=== PATIENT | female | born 1980 | race Caucasian/White ===

== ENCOUNTER 2016-12-01 21:25 | Emergency (ER) | payer OTHER ==
[~2016-12-01] VITALS: Ht 154.9 cm; Wt 89.4 kg
[~2016-12-01 21:25] MED LIST: ABILIFY DISCMEL10 MG PO; ALDACTONE100 MG PO; AQUASOL-A,10000 UNIT PO; ATIVAN0.5 MG PO; BENTYL20 MG PO; BUMETANIDE0.5 MG PO; Bentyl PO; CARAFATE1 GM PO; CARAFATE100 MG/ML PO; CARISOPRODOL350 MG PO; CELEBREX200 MG PO; CHRONULAC,CEPHUL1 ML; CIPROFLOXACIN500 M1 PO; CONSTULOSE10 GM/15 M PO; Carafate PO; DESITIN113 G1 TP; Depo-Provera IM; ENDOCET 5-3251 EACH PO; ERGOCALCIF50000 UNIT PO; ESCITALOPRAM OX20 MG PO; FERROUS SULFAT325 MG PO; FLAGYL500 MG PO; FLEET ENEMA-AD118 ML PR; Flagyl PO; Flexeril PO; GENERLAC10 GM/15 M PO; K-DUR20 MEQ PO; KAOPECTATE PO; KEFLEX500 MG PO; KLONOPIN0.5 M1 PO; KLONOPIN1 MG PO; KLOR-CON M2020 MEQ PO; LASIX40 MG PO; LASIX80 MG PO; LEVOTHROID200 MCG PO; LEXAPRO10 MG PO; LEXAPRO20 MG PO; Lasix PO; Levothroid,Synthroid PO; Lexapro PO; MEDROXYPRO150 MG/1 M SC; MIRALAX17 GM PO; MOTRIN800 MG PO; MULTIVITAMIN1 EAC2 PO; NAPROSYN500 MG PO; NEXIUM40 MG PO; NexIUM PO; Norvasc PO; OXYCODONE HCL10 MG PO; OXYCONTIN10 MG PO; OXYCONTIN40 MG PO; PERCOCET 10-321 EACH PO; PERCOCET 10/1 TABLET PO; PROTONIX40 MG PO; Phenergan PO; ROXICODONE15 MG PO; Reglan PO; SOMA350 MG PO; SUCRALFATE1 GM PO; SYNTHROID150 MCG PO; SYNTHROID200 MCG PO; SYNTHROID300 MCG PO; Soma PO; THIAMINE HCL50 MG PO; UNISOM25 MG PO; VAPOR INHALER50 MG BOTH NARES; VITAMIN A10000 UNIT PO; VITAMIN B-1100 MG PO; VITAMIN B-122500 MCG SL; VITAMIN B-150 MG PO; VITAMIN D; VITAMIN D250000 UNIT PO; XIFAXAN550 MG PO; Xifaxan PO; ZANAFLEX4 M1 PO
[2016-12-02 00:36] LABS: HEMATOCRIT 33.8 % (36.0-46.0); MCH 29.8 PG (29.0-34.0); MCHC 33.7 G/DL (30.0-36.0); MCV 88.3 FL (83-99); PLATELET COUNT 188 K/uL (156-360); RBC DIS.WIDTH-CV 14.5 % (11.8-14.6); RBC DIS.WIDTH-SD 45.8 % (39-53); RED BLOOD COUNT 3.83 M/uL (3.80-5.20); WHITE BLOOD COUNT 5.5 K/uL (4.1-10.2)
[2016-12-02 00:46] LABS: CHLORIDE 108 mEq/L (99-109); POTASSIUM 3.9 mEq/L (3.7-5.4); SODIUM 140 mEq/L (136-147)
[2016-12-02 00:48] LABS: GLUCOSE 77 mg/dL (70-99)
[2016-12-02 00:49] LABS: ANION GAP 13 MEQ/L (2-14)
[2016-12-02 00:50] LABS: TOTAL BILIRUBIN 0.6 mg/dL (0.0-1.0)
[2016-12-02 00:52] LABS: ALKALINE PHOSPHATASE 53 IU/L (3-129); GFR ESTIMATE (CALCULATED) > 59 mL/min/
[2016-12-02 00:53] LABS: UREA NITROGEN (BUN) 12 mg/dL (9-23)
[2016-12-02] MEDS ORDERED: BENADRYL50 MG PO (01:21)
[2016-12-02] MEDS ORDERED: PREDNISONE10 M1 PO (01:21)
[2016-12-02 01:48] VITALS: BP 125/76
== END 2016-12-02 01:50 | disposition home or self-care (01) ==
LOC: EME 21:25
PROVIDERS: Physician Assistant
DX: T78.40XA Allergy, unspecified, initial encounter (principal); G89.29 Other chronic pain; Z79.891 Long term (current) use of opiate analgesic; Z87.891 Personal history of nicotine dependence
CPT/HCPCS: 80053; 85027; 99281; 99284

== ENCOUNTER 2018-04-20 12:29 | Emergency (ER) | payer OTHER ==
[~2018-04-20] VITALS: Ht 154.9 cm; Wt 85.0 kg
[~2018-04-20 12:29] MED LIST changes: +BENADRYL50 MG PO; +PREDNISONE10 M1 PO
[2018-04-20 13:05] LABS: HEMATOCRIT 36.3 % (36.0-46.0); HEMOGLOBIN 12.1 G/DL (11.9-15.5); MCH 29.2 PG (29.0-34.0); MCHC 33.3 G/DL (30.0-36.0); MCV 87.7 FL (83-99); PLATELET COUNT 178 K/uL (156-360); RBC DIS.WIDTH-CV 13.6 % (11.8-14.6); RBC DIS.WIDTH-SD 43.9 % (39-53); RED BLOOD COUNT 4.14 M/uL (3.80-5.20)
[2018-04-20 13:26] LABS: ALBUMIN 4.4 g/dL (3.2-4.8)
[2018-04-20 13:27] LABS: CHLORIDE 107 mEq/L (99-109); POTASSIUM 3.5 mEq/L (3.7-5.4); SODIUM 142 mEq/L (136-147)
[2018-04-20 13:29] LABS: GLUCOSE 91 mg/dL (70-99); TOTAL PROTEIN 7.1 g/dL (6.4-8.3)
[2018-04-20 13:31] LABS: TOTAL BILIRUBIN 0.5 mg/dL (0.0-1.0)
[2018-04-20 13:32] LABS: ALKALINE PHOSPHATASE 50 IU/L (3-129)
[2018-04-20 13:33] LABS: CREATININE 0.8 mg/dL (0.6-1.3); GFR ESTIMATE (CALCULATED) > 59 mL/min/
[2018-04-20 13:34] LABS: AST (GOT) 32 IU/L (2-34); UREA NITROGEN (BUN) 6 mg/dL (9-23)
[2018-04-20 13:35] LABS: ALT (GPT) 29 IU/L (3-49)
[2018-04-20 13:41] LABS: QUANTITATIVE HCG < 4.0 MIU/ML
[2018-04-20 15:35] LABS: APPEARANCE CLEAR ((CLEAR)); BILIRUBIN NEGATIVE; BLOOD NEGATIVE; COLOR YELLOW ((YELLOW)); GLUCOSE (STRIP) NEGATIVE; KETONES NEGATIVE; LEUKOCYTES TRACE; NITRITE POSITIVE; PROTEIN (STRIP) 30; UROBILINOGEN 0.2 MG/DL (0.2-1.0)
[2018-04-20 15:57] LABS: BACTERIA 2+ /HPF; EPITHELIAL CELLS 1+ /HPF; MUCUS 2+ /LPF; RED BLOOD CELLS RARE /HPF (0-5); UCUL ADDED? YES
[2018-04-20] MEDS ORDERED: KEFLEX500 MG PO (16:04)
[2018-04-20] MEDS ORDERED: MIRALAX255 GM PO (16:13)
[2018-04-20] MEDS ORDERED: REGLAN10 MG PO (16:14)
[2018-04-20 16:52] VITALS: BP 109/67
== END 2018-04-20 16:57 | disposition home or self-care (01) ==
LOC: EME 12:29
DX: R11.2 Nausea with vomiting, unspecified (principal); R19.7 Diarrhea, unspecified; K59.00 Constipation, unspecified; N39.0 Urinary tract infection, site not specified; R55 Syncope and collapse; Z98.84 Bariatric surgery status; Z87.442 Personal history of urinary calculi; K76.0 Fatty (change of) liver, not elsewhere classified; Z87.891 Personal history of nicotine dependence
CPT/HCPCS: 74177; 80053; 81003; 84702; 85027; 87077; 87086 GA; 87186; J2765; J3010; J7120